=== PATIENT | female | born 1975 | race Caucasian/White ===

== ENCOUNTER 2019-07-11 22:14 | Emergency (ER) | payer SELFPAY ==
[~2019-07-11] VITALS: Ht 157.5 cm; Wt 76.2 kg
[2019-07-11 22:19] VITALS: Ht 157.5 cm; Wt 76.2 kg
[2019-07-12 00:38] VITALS: BP 127/75
== END 2019-07-12 00:38 | disposition home or self-care (01) ==
LOC: ED 22:14
DX: J20.9 Acute bronchitis, unspecified (principal)
CPT/HCPCS: 87804; J1885; Q0092